=== PATIENT | male | born 1960 | race Caucasian/White ===

== ENCOUNTER 2024-11-25 09:17 | Emergency (ER) | payer OTHER, SELFPAY ==
[2024-11-25 09:20] VITALS: BP 173/102
--- NOTE | 2024-11-25 09:33 | ED.GENMED ---
History of Present Illness
General
Chief Complaint: Musculo-Skeletal Complaint
Source: patient and spouse
Exam Limitations: none
Time Seen by Provider: 11/25/24 09:23
Nursing documentation reviewed up to this point in time: agreed with
History of Present Illness
History of Present Illness:
64-year-old male with no reported chronic medical issues presents to the emergency room for evaluation of right wrist pain and swelling. Patient reports onset of symptoms a few days ago and pain has been constant since then although swelling has
greatly progressed since last night. He reports that the wrist is painful with any attempted movement and very stiff. He says it is warm to the touch. Has not noticed any redness. He denies any trauma or injury recently although he says in the
distant past he broke his right wrist playing rugby. He has not had any fevers or chills. He denies any other joint pains. He denies other complaints.
Review of Systems
Review of Systems
All Other Systems: ROS reviewed and negative except as documented in HPI and ROS
Constitutional: Denies fever or chills
Musculoskeletal: Reports joint pain (Wrist pain) and joint swelling (Wrist swelling)
Skin: Denies rash
Phy Exam
Physical Exam
Physical Exam:
General: Well appearing and non-toxic
HEENT: protecting airway
Neck: appears supple
CV: No evidence of cyanosis
Resp: No accessory muscle use
Abd: Non-distended
Extremities: Patient has swelling around the right wrist circumferentially, any attempt at range of motion is exquisitely painful in the right wrist; right wrist is tender more over the radial head than over the ulnar aspect but not focally tender;
joint is warm but not erythematous, no wounds or rash noted; no tenderness or swelling in the forearm, elbow, shoulder on the right; strong right radial pulse; motor and sensory intact in the right upper extremity
Neuro: Alert
Psych: Normal affect
Skin: Intact
Scores
Heart Failure Risk
Heart Failure Risk Score: Not Applicable
Heart Score for Chest Pain Patients
STEMI patient?: Not applicable
Withdrawal Assessment of Alcohol
Withdrawal Assessment Completed?: Not applicable
Course
Orders/Labs/Results
Orders:
Orders
11/25/24 09:24
CR Wrist - Right Min 3 Views Urgent
Comment:
Reason For Exam: pain and swelling
11/25/24 10:05
Body Fluid Crystals Urgent
What is the Body Fluid: joint
Date Specimen was Collected: 11/25/24
Time Specimen was Collected: 10:02
Fluid Culture with Gram Stain Urgent
KRISTEN Source: Joint Fluid
Specimen Description:
Date Specimen was Collected: 11/25/24
Time Specimen was Collected: 10:02
11/25/24 10:11
CRP [C-Reactive Protein] Urgent
Complete Blood Count/With Diff Urgent
Comprehensive Metabolic Panel Urgent
ESR [Erythrocyte Sed Rate] Urgent
Uric Acid Urgent
11/25/24 10:53
Colchicine 1.2 mg PO NOW STA
Ketorolac [Toradol] 30 mg IM NOW STA
11/25/24 11:01
Ketorolac [Toradol] 15 mg IV NOW STA
Abnormal Lab Results
11/25/24
10:11
WBC 12.6 H 10^3/uL
(4.8-10.8)
MPV 10.7 H fL
(7.4-10.4)
Abs Immat Gran (auto) 0.1 H 10^3/uL
(0-0.05)
Absolute Neuts (auto) 9.1 H 10^3/uL
(1.4-6.5)
Absolute Monos (auto) 1.3 H 10^3/uL
(0.1-0.6)
Lymphocytes % 15.2 L %
(20.5-51.1)
Monocytes % 10.2 H %
(1.7-9.3)
Chloride 109 H mmol/L
(98-107)
Glucose 175 H mg/dl
(70-99)
Uric Acid 9.1 H mg/dl
(3.5-8.5)
C-Reactive Protein 22.90 H mg/L
(0.0-10.00)
Total Protein 8.5 H g/dl
(6.3-8.2)
11/25/24 10:11
11/25/24 10:11
Vital Signs
Initial and Last Documented VS:
Initial Vital Signs
Temp Pulse Resp BP Pulse Ox
36.7 C 97 18 173/102 95
11/25/24 09:20 11/25/24 09:20 11/25/24 09:20 11/25/24 09:20 11/25/24 09:20
Last Documented Vital Signs
Temp Pulse Resp BP Pulse Ox
36.7 C 97 18 173/102 95
11/25/24 09:20 11/25/24 09:20 11/25/24 09:20 11/25/24 09:20 11/25/24 09:20
Procedures
Incision/Drainage/Joint Aspiration
Right Wrist:
Anethesia: 1% Lidocaine
Preparation: cleaned with Betadine
Type of procedure: aspiration
Nature of site: other (swollen joint)
How much fluid was obtained?: number in mls (3)
Fluid description: blood tinged and yellowish
Treatment: bandaid applied
MDM/Problems Addressed
Differential Diagnosis Includes:
Fracture, sprain, gout/pseudogout, osteoarthritis,, tendinitis
MDM/Problems Addressed:
64-year-old male presents for evaluation of atraumatic right wrist pain and swelling developing over the past few days. Hypertensive otherwise normal vitals. Physical exam as above. Plan to start with an x-ray of the wrist. If negative will plan
for arthrocentesis, send basic labs including inflammatory markers.
X-ray reviewed by me shows no fracture. Arthrocentesis performed�approximately 2 to 3 cc of yellow viscous blood-tinged fluid obtained and sent off for culture and fluid analysis. Send lab work as well. Reassess.
Received a call from the lab�unfortunately scant amount of joint fluid was very viscous with some clotted blood and so they were not able to perform cell count but will be able to send for Gram stain and culture. They will also attempt crystal
analysis.
Labs reviewed: CBC shows marginal leukocytosis, CMP no clinically significant abnormalities. His uric acid level is elevated. CRP is elevated. Fluid crystals were positive for monosodium urate crystals which confirms diagnosis of gout. Will
start on colchicine, NSAIDs. Stable for discharge.
*Radiology
Radiology exam reviewed: preliminary read by ED provider
*Pulse Oximetry
Patient hypoxic: no
*Critical Care Note
Total Time (30-74mins, 75-104mins- exclusive of procedures): Not Applicable
Data Reviewed
Source: patient and spouse
ED Attending Note
-
Portions of this chart may have been created with voice recognition software.� Occasional wrong word or��sound alike� substitutions may have occurred due to the inherent limitations of voice recognition software.
Discharge Plan
Departure
Patient Disposition: Home (Routine Discharge)
Date of Disposition: 11/25/24
Time of Disposition: 10:53
Patient with high blood pressure during this ER visit?: Yes
Discharge Problem:
Gout attack, Hypertension
Instructions: Gout - ED discharge instructions, BLOOD PRESSURE
Prescriptions:
New
colchicine 0.6 mg tablet
0.6 mg PO BID Qty: 60 0RF
Rx Instructions:
Take 1 tablet twice daily until your symptoms resolve
ibuprofen 400 mg tablet
400 mg PO Q6H PRN (Reason: Pain) Qty: 30 0RF
Referrals:
NONE,* [Family Provider, Internal Medicine]
Activity Restrictions/Additional Instructions:
Thank you for visiting the Emergency Department at [facility].
1. Please schedule a follow up appointment as directed. Call first thing tomorrow morning to make an appointment.
2. If indicated, please take your medications as instructed and indicated on discharge paperwork.
3. If any of your symptoms do not improve, or persist, or become more severe within 6-12 hours, please return to the emergency department for further care.
4. Please return to the emergency department if you develop a headache, neck pain/stiffness, fever greater than 100.4F, chest pain, shortness of breath, persistent nausea, vomiting, slurred speech, difficulty walking, numbness/tingling, weakness,
signs of infection or any other symptoms that are worrisome to you.
Please call [phone] if you have any questions.
Interventions
Interventions:
*Risk Screen - Suicide Last Done: 11/25/24 09:20
*General Assessment Last Done: 11/25/24 09:20
*Neglect/Abuse Screening Last Done: 11/25/24 09:20
ED-Musculoskeletal Assessment Last Done: 11/25/24 09:37
Discharge Date and Time
Print Language: UPPER SORBIAN
[2024-11-25 10:22] LABS: % Basophils 0.4 % (0-2); % Eosinophils 1.4 % (0-6); % Immature Granulocytes 0.5 % (0-0.5); % Lymphocytes 15.2 % (20.5-51.1); % Monocytes 10.2 % (1.7-9.3); % Neutrophils 72.3 % (42.2-75.2); Absolute Basophils 0.1 10^3/uL (0-0.2); Absolute Eosinophils 0.2 10^3/uL (0-0.7); Absolute Immature Granulocytes 0.1 10^3/uL (0-0.05); Absolute Lymphocytes 1.9 10^3/uL (1.2-3.4); Absolute Monocytes 1.3 10^3/uL (0.1-0.6); Absolute Neutrophils 9.1 10^3/uL (1.4-6.5); Hematocrit 47.3 % (39.0-52.0); Hemoglobin 16.1 g/dL (13.0-18.0); Mean Platelet Volume 10.7 fL (7.4-10.4); Nucleated Red Blood Cells % 0 % (-); Platelet Count 195 10^3/uL (130-400); Red Cell Dist. Width 13.2 % (11.5-14.5); White Blood Cell Count 12.6 10^3/uL (4.8-10.8)
[2024-11-25 10:41] LABS: ALT (SGPT) 23 U/L (0-50); AST (SGOT) 21 U/L (17-59); Albumin 4.6 g/dl (3.5-5.0); Alkaline Phosphatase 83 U/L (38-126); Blood Urea Nitrogen 19 mg/dl (9-20); Calcium 9.2 mg/dl (8.4-10.2); Carbon Dioxide 24 mmol/L (22-30); Chloride 109 mmol/L (98-107); Glucose 175 mg/dl (70-99); Potassium 4.5 mmol/L (3.5-5.1); Sodium 143 mmol/L (135-145); Total Protein 8.5 g/dl (6.3-8.2); Uric Acid 9.1 mg/dl (3.5-8.5); eGFR > 60.00
[2024-11-25] MEDS: COLCHICINE 1.2 MG PO (11:07)
[2024-11-25] MEDS: TORADOL 15 MG IV (11:07)
[2024-11-25 11:40] LABS: Erythrocyte Sed Rate 20 mm/hour (0-20)
== END 2024-11-25 11:26 | disposition home or self-care (01) ==
LOC: EMR 09:17
PROVIDERS: EMERGENCY PHYSICIAN Emergency Medicine
DX: M10.9 Gout, unspecified (principal); I10 Essential (primary) hypertension; Y93.63 Activity, rugby
CPT/HCPCS: 99283; 20605; 96374; 73110; 80053; 84550; 85025; 85652; 86140; 87015; 87070; 87205; 89060